=== PATIENT | male | born 1935 | race Caucasian/White ===

== ENCOUNTER → 2017-12-11 | Outpatient (CLI) | payer MEDICARE ==
[~2017-12-11] MED LIST: ACET500T68 PO; AMLO-106 PO; AMLO-99 PO; AMLO2.5T74 PO; AMOX500T10 PO; ASPI-1441 PO; AZEL6DRO OP; BENA40TA52 PO; CALC-521 PO; CALC-682 PO; CALC400T60 PO; CALC500T76 PO; CHOL10005 PO; CHOL200051 PO; CLOB15CR22 TP; CLON-327 PO; CLON-329 PO; DEN60I SUBQ; ENO100I SC; FISH1CAP15 PO; GABA-490 PO; IMIQ1CRE TP; LORA-629 PO; LORA-941 PO; META400T PO; MULT-1081 PO; MULT-1335 PO; MULTIVIT; NEPH PO; OMEP-218 PO; OXYGENHOME INH; PER PO; PRI250 PO; PRIM250T73 PO; PRIM50TA PO; PRO20 PO; PROP10TA58 PO; PROP20TA56 PO; RISE35TA PO; SILD100T59 PO; TIMO10DR28; VIT B 100; VITA-347 PO; WARF-12 PO; [UNRECOGNIZED DRUG - CODE] OD; [UNRECOGNIZED DRUG - CODE] OP; [UNRECOGNIZED DRUG - CODE] PO; [UNRECOGNIZED DRUG - CODE] PO; [UNRECOGNIZED DRUG - CODE] PO; [UNRECOGNIZED DRUG - OTHER]; [UNRECOGNIZED DRUG - REMARK]; [UNRECOGNIZED DRUG - REMARK] PO
== END ==
LOC: RESP 20:46
PROVIDERS: ATTEND Family Medicine
DX: G47.33 Obstructive sleep apnea (adult) (pediatric) (principal); G47.61 Periodic limb movement disorder; G47.36 Sleep related hypoventilation in conditions classified elsewhere

== ENCOUNTER → 2017-12-31 | Outpatient (CLI) | payer MEDICARE ==
[~2017-12-31] MED LIST changes: +DENOSUMAB 60 MG/1 ML SYR SUBQ ONE
[2017-12-31 16:00] VITALS: BP 142/76
== END ==
LOC: SPU 07:34
PROVIDERS: ATTEND Family Medicine
DX: M81.0 Age-related osteoporosis without current pathological fracture (principal)
CPT/HCPCS: 96372; J0897

== ENCOUNTER → 2018-02-17 | Outpatient (CLI) | payer MEDICARE ==
[~2018-02-17] MED LIST changes: -DENOSUMAB 60 MG/1 ML SYR SUBQ ONE
[2018-02-17 17:05] LABS: PLATELET COUNT, AUTOMATED 200 K/uL (150-450)
== END ==
LOC: LAB 16:30
PROVIDERS: ATTEND Family Medicine
DX: I10 Essential (primary) hypertension (principal)
CPT/HCPCS: 36415; 82040; 82247; 82310; 82374; 82435; 82565; 82947; 84075; 84132; 84155; 84295; 84450; 84460; 84520; 85025

== ENCOUNTER 2018-02-22 09:45 | Emergency (ER) | payer MEDICARE ==
[2018-02-22] MEDS ORDERED: NS(*) 0.9% 500 ML BAG 500 ML IV ONE (10:28)
[2018-02-22] MEDS ORDERED: MECLIZINE HCL 25 MG TAB PO ONE (10:30)
--- NOTE | 2018-02-22 10:32 | EKG ---
FACILITY: [facility] - [place] PATIENT NAME: JENNIFER RAMOS : [id number] MR: [id number] V: [id number] EXAM DATE: ORDERING PHYSICIAN: PIERO MCKEON TECHNOLOGIST: NORMA Test Reason : Blood Pressure : / mmHG Vent. Rate : 067 BPM Atrial Rate : 067 BPM P-R Int : 256 ms QRS Dur : 098 ms QT Int : 388 ms P-R-T Axes : 044 066 023 degrees QTc Int : 409 ms Sinus rhythm with 1st degree AV block Otherwise normal ECG No previous ECGs available Confirmed by Yamil Combs ([id number]) on 02/22/2018 4:52:24 PM Referred By: Confirmed By:Yamil Eugene
[2018-02-22 10:36] LABS: PLATELET COUNT, AUTOMATED 191 K/uL (150-450)
--- NOTE | 2018-02-22 11:25 | RADIOLOGY IMAGING REPORT ---
[facility] PATIENT NAME: Justyn Webb : 1935 MR: [id number] V: [id number] EXAM DATE: ORDERING PHYSICIAN: PIERO MCKEON TECHNOLOGIST: Location: [facility] Patient: Justyn Webb : 1935 Visit/Account:[id number] Date of Sevice: 02/22/2018 Exam type: CHEST PA AND LAT History: dizziness Comparison: February 08, 2011. Findings: Mild hyperexpansion of the lung lee again seen. There is no evidence of acute appearing infiltrat es, pleural effusions or pulmonary edema. Cardiac silhouette is normal in size. There are old right -sided rib fractures IMPRESSION: 1. Mild hyperexpansion of the lung lee similar to the prior study Report Dictated By: Tricia Stewart MD at 02/22/2018 11:21 AM Report E-Signed By: Tricia Stewart MD at 02/22/2018 11:23 AM WSN:[email or web address]
--- NOTE | 2018-02-22 11:27 | RADIOLOGY IMAGING REPORT ---
FACILITY: [facility] [place] PATIENT NAME: Justyn Webb : 1935 MR: [id number] V: [id number] EXAM DATE: ORDERING PHYSICIAN: PIERO MCKEON TECHNOLOGIST: Location: [facility] Patient: Justyn Webb : 1935 Visit/Account:[id number] Date of Sevice: 02/22/[address] scan without contrast HISTORY: Dizziness COMPARISONS: None TECHNIQUE: Non-contrast head CT was performed with sagittal and coronal reformations. One of the following dose optimization techniques was utilized in the performance of this exam: autom ated exposure control; adjustment of the mA and/or kV according to patient size; or use of iterative reconstruction technique. Specific details can be referenced in the facility's radiology CT exam ope rational policy. FINDINGS: There is no intracranial hemorrhage, hydrocephalus or midline shift. The basal cisterns, espinosa-white differentiation, and convexity sulci are maintained. Patchy white matter hypoattenuation. Normal or bital soft tissues. Clear mastoid air cells, minimal left maxillary sinus mucosal thickening. Bilateral frontoethmoidal recess mucosal thickening. Normal osseous structures. IMPRESSION: No acute intracranial abnormality. Moderate chronic small vessel ischemic change. Report Dictated By: Ruben Tejada MD at 02/22/2018 11:20 AM Report E-Signed By: Ruben Tejada MD at 02/22/2018 11:23 AM WSN:[id number]
[2018-02-22 11:30] VITALS: BP 148/75
--- NOTE | 2018-02-22 11:47 | ER Report ---
History and Physical Time Seen By MD: 09:55 Hx. of Stated Complaint: WOKE UP DIZZY THIS MORNING. FEELS LIKE THE RIGHT SIDE OF HIS BODY IS HEAVIER THAN THE LEFT. FEELS STRANGE ALL OVER. FELT "NORMAL" UNTILL HE HE WOKE UP THIS MORNING. HAD A RECENT BLOOD DRAW ON THUR. UNSURE WHAT THEY WERE CHECKING FOR HPI/ROS CHIEF COMPLAINT: Positional dizziness HISTORY OF PRESENT ILLNESS: Patient is an 82-year-old male who presents emergency department with complaint of positional dizziness that began this morning upon waking. He states he went to bed feeling well. He denies headache. He denies chest pain or palpitations. Denies chest pressure. States symptoms are worse with movement better with rest. States that he's had similar symptoms in the past but not quite as severe. Denies prior stroke denies prior symptoms. He denies any infectious symptoms such as fever or neck stiffness denies upper respiratory symptoms including throat pain or cough. Denies any recent changes in medications. REVIEW OF SYSTEMS: Constitutional: No fever, no chills. Eyes: No discharge. ENT: No sore throat. Cardiovascular: No chest pain, no palpitations. Respiratory: No cough, no shortness of breath. Gastrointestinal: No abdominal pain, no vomiting. Genitourinary: No hematuria. Musculoskeletal: No back pain. Skin: No rashes. Neurological: No headache. Additional dizziness Allergies: Coded Allergies: animal dander (Verified Allergy, Unknown, 02/22/18) Uncoded Allergies: HAYFEVER (Allergy, Mild, UNKNOWN, 11/25/11) Home Meds Active Scripts Meclizine Hcl (MECLIZINE HCL) 25 Mg Tablet, 25 MG PO TID for dizziness, #30 TAB 0 Refills Prov:PIERO MCKEON MD 02/22/18 Clonidine Hcl (CLONIDINE HCL) 0.2 Mg Tablet, 0.2 MG PO BID for 90 Days, #180 TAB 4 Refills Prov:WANDY CALDERÓN MD 01/11/18 Gabapentin (NEURONTIN) 300 Mg Capsule, 1 CAP PO BID for 90 Days, #180 CAPSULE 4 Refills Prov:WANDY CALDERÓN MD 08/11/17 Amlodipine Besylate (AMLODIPINE BESYLATE) 10 Mg Tablet, 1 TAB PO QDAY, #90 TAB 4 Refills Prov:WANDY CALDERÓN MD 08/10/17 Propranolol Hcl (PROPRANOLOL HCL) 20 Mg Tablet, 2 TAB PO BID for 90 Days, #360 TAB 3 Refills Prov:WANDY CALDERÓN MD 07/09/17 Primidone (PRIMIDONE) 250 Mg Tab, 1 TAB PO BID for 90 Days, #180 TAB 3 Refills Prov:WANDY CALDERÓN MD 07/09/17 Sildenafil Citrate (VIAGRA) 100 Mg Tablet, 1 TAB PO PRN, #6 TAB 6 Refills Prov:PAM ENGLE MD 04/14/17 Reported Medications Oxygen (OXYGEN) Inha, 3 L INH HS, L Hummidified with CPaP 12/20/17 Calcium Carbonate (TUMS) 300 Mg Tab.chew, 2 TAB PO HS, TAB.CHEW 07/09/17 Amoxicillin 500 Mg Tab (AMOXICILLIN 500 MG TAB) 500 Mg Tablet, 4 TAB PO PRN, TAB 07/09/17 Cholecalciferol (Vitamin D3) (D-2000) 2,000 Unit Capsule, 1 CAP PO DAILY, CAPSULE 07/09/17 Acetaminophen (TYLENOL EXTRA STRENGTH) 500 Mg Tablet, 2 TAB PO BID, TAB 01/05/17 Denosumab (PROLIA) 60 Mg/1 Ml Injs, 60 MG SUBQ Q6H 01/05/17 Vitamin B Complex (NATURAL B-100) 1 Each Tablet, 1 EACH PO HS 01/05/17 Multivitamin (MULTI-DAY VITAMINS) 1 Each Tablet, 1 EACH PO DAILY 01/05/17 Loratadine (LORATADINE) 10 Mg Tablet, 1 TAB PO DAILY 01/05/17 Hx Smoking: No Smoking Status: Never Smoker Constitutional Vital Sign - Last 24 Hours 02/22/18 02/22/18 02/22/18 02/22/18 09:45 09:51 09:55 10:00 Temp 97.4 Pulse ??? 65 ??? Resp 14 B/P (MAP) 146/82 146/82 (103) 154/88 (110) Pulse Ox 91 92 O2 Delivery Room Air 02/22/18 02/22/18 02/22/18 02/22/18 10:15 10:17 10:30 10:45 Pulse 66 59 ??? Resp 33 7 B/P (MAP) 127/75 (92) Pulse Ox 86 O2 Flow Rate 2.0 02/22/18 02/22/18 02/22/18 02/22/18 11:00 11:05 11:20 11:28 Pulse ? B/P (MAP) 148/77 (100) 149/90 (109) 02/22/18 02/22/18 02/22/18 11:30 11:35 11:50 Pulse 62 56 B/P (MAP) 148/75 (99) Pulse Ox 94 95 Physical Exam General/Constitutional: Patient is awake, alert, nontoxic and in no acute respiratory distress. Head: Normocephalic and atraumatic. Eyes: Conjunctival clear, Pupils are equal and reactive to light. Extraocular muscles are intact and symmetrical. Sclera are clear and anicteric. Ears:External canals are clear. Tympanic membranes are clear with normal landmarks and light reflex. Nares: No rhinorrhea or bleeding. Turbinates are pink and moist. Oropharyngeal: Mucous membranes are moist. There is no pharyngeal erythema or exudate. There are no palatal petechiae. Uvula is midline and symmetrical. Neck: Supple, no adenopathy. Cardiovascular: Heart is regular rate and rhythm without audible murmurs, rubs or gallops. Pulmonary: Lungs are clear to auscultation bilaterally. There are no wheezes, rales, or rhonchi. Chest rise is symmetrical Abdomen: Soft, nontender, no guarding or peritoneal signs. Extremities: No gross deformities, No peripheral cyanosis. Able to move all 4 extremities. Neuro: Alert and oriented X3, Cranial nerves 2 thru 12 are intact and symmetrical. Patient has normal gait. Skin: No rashes, skin is warm dry and well perfused. Medical Decision Making Data Points Result Diagram: 02/22/18 1009 02/22/18 1009 Laboratory Hematology Test 02/22/18 10:09 02/22/18 11:22 Red Blood Count 4.42 M/uL (4.00-5.60) Mean Corpuscular Volume 94.2 fL (80.0-96.0) Mean Corpuscular Hemoglobin 32.0 pg (26.0-33.0) Mean Corpuscular Hemoglobin Concent 33.9 g/dL (32.0-36.0) Red Cell Distribution Width 16.0 % (11.5-14.5) Mean Platelet Volume 8.5 fL (7.2-11.1) Neutrophils (%) (Auto) 51.9 % (39.4-72.5) Lymphocytes (%) (Auto) 22.4 % (17.6-49.6) Monocytes (%) (Auto) 12.4 % (4.1-12.4) Eosinophils (%) (Auto) 11.9 % (0.4-6.7) Basophils (%) (Auto) 1.4 % (0.3-1.4) Nucleated RBC Relative Count (auto) 0.1 /100WBC Neutrophils # (Auto) 2.3 K/uL (2.0-7.4) Lymphocytes # (Auto) 1.0 K/uL (1.3-3.6) Monocytes # (Auto) 0.5 K/uL (0.3-1.0) Eosinophils # (Auto) 0.5 K/uL (0.0-0.5) Basophils # (Auto) 0.1 K/uL (0.0-0.1) Nucleated RBC Absolute Count (auto) 0.01 K/uL Sodium Level 141 mmol/L (137-145) Potassium Level 4.4 mmol/L (3.5-5.0) Chloride Level 103 mmol/L (98-107) Carbon Dioxide Level 25 mmol/L (22-30) Blood Urea Nitrogen 32 mg/dl (9-21) Creatinine 1.20 mg/dl (0.66-1.25) Glomerular Filtration Rate Calc 58.3 Random Glucose 107 mg/dl (75-110) Calcium Level 10.1 mg/dl (8.4-10.2) Magnesium Level 1.5 mg/dl (1.7-2.2) Total Bilirubin 0.4 mg/dl (0.2-1.3) Aspartate Amino Transf (AST/SGOT) 28 U/L (0-35) Alanine Aminotransferase (ALT/SGPT) 24 U/L (0-56) Alkaline Phosphatase 69 U/L (0-126) Troponin I < 0.012 ng/ml Total Protein 8.1 g/dl (6.3-8.2) Albumin 4.2 g/dl (3.5-5.0) Urine Color Yellow Urine Clarity Clear Urine pH 6.0 pH (4.8-9.5) Urine Specific [place] 1.013 Urine Protein Negative mg/dL (NEGATIVE) Urine Glucose (UA) Negative mg/dL (NEGATIVE) Urine Ketones Negative mg/dL (NEGATIVE) Urine Blood Negative (NEGATIVE) Urine Nitrite Negative (NEGATIVE) Urine Bilirubin Negative (NEGATIVE) Urine Urobilinogen Negative mg/dL (0.2-1.9) Urine Leukocyte Esterase Negative (NEGATIVE) Urine RBC <1 /HPF (0-2/HPF) Urine WBC 1 /HPF (0-5/HPF) Urine Squamous Epithelial Cells None /LPF (</=FEW) Urine Bacteria Negative /HPF (NONE-FEW) Urine Hyaline Casts Few /LPF (NONE-FEW) Urine Mucus None /HPF (NONE-FEW) Chemistry Test 02/22/18 10:09 02/22/18 11:22 White Blood Count 4.3 k/uL (4.5-11.0) Red Blood Count 4.42 M/uL (4.00-5.60) Hemoglobin 14.1 g/dL (14.0-18.0) Hematocrit 41.6 % (42.0-52.0) Mean Corpuscular Volume 94.2 fL (80.0-96.0) Mean Corpuscular Hemoglobin 32.0 pg (26.0-33.0) Mean Corpuscular Hemoglobin Concent 33.9 g/dL (32.0-36.0) Red Cell Distribution Width 16.0 % (11.5-14.5) Platelet Count 191 K/uL (150-450) Mean Platelet Volume 8.5 fL (7.2-11.1) Neutrophils (%) (Auto) 51.9 % (39.4-72.5) Lymphocytes (%) (Auto) 22.4 % (17.6-49.6) Monocytes (%) (Auto) 12.4 % (4.1-12.4) Eosinophils (%) (Auto) 11.9 % (0.4-6.7) Basophils (%) (Auto) 1.4 % (0.3-1.4) Nucleated RBC Relative Count (auto) 0.1 /100WBC Neutrophils # (Auto) 2.3 K/uL (2.0-7.4) Lymphocytes # (Auto) 1.0 K/uL (1.3-3.6) Monocytes # (Auto) 0.5 K/uL (0.3-1.0) Eosinophils # (Auto) 0.5 K/uL (0.0-0.5) Basophils # (Auto) 0.1 K/uL (0.0-0.1) Nucleated RBC Absolute Count (auto) 0.01 K/uL Glomerular Filtration Rate Calc 58.3 Calcium Level 10.1 mg/dl (8.4-10.2) Magnesium Level 1.5 mg/dl (1.7-2.2) Total Bilirubin 0.4 mg/dl (0.2-1.3) Aspartate Amino Transf (AST/SGOT) 28 U/L (0-35) Alanine Aminotransferase (ALT/SGPT) 24 U/L (0-56) Alkaline Phosphatase 69 U/L (0-126) Troponin I < 0.012 ng/ml Total Protein 8.1 g/dl (6.3-8.2) Albumin 4.2 g/dl (3.5-5.0) Urine Color Yellow Urine Clarity Clear Urine pH 6.0 pH (4.8-9.5) Urine Specific [place] 1.013 Urine Protein Negative mg/dL (NEGATIVE) Urine Glucose (UA) Negative mg/dL (NEGATIVE) Urine Ketones Negative mg/dL (NEGATIVE) Urine Blood Negative (NEGATIVE) Urine Nitrite Negative (NEGATIVE) Urine Bilirubin Negative (NEGATIVE) Urine Urobilinogen Negative mg/dL (0.2-1.9) Urine Leukocyte Esterase Negative (NEGATIVE) Urine RBC <1 /HPF (0-2/HPF) Urine WBC 1 /HPF (0-5/HPF) Urine Squamous Epithelial Cells None /LPF (</=FEW) Urine Bacteria Negative /HPF (NONE-FEW) Urine Hyaline Casts Few /LPF (NONE-FEW) Urine Mucus None /HPF (NONE-FEW) Urinalysis Test 02/22/18 11:22 Urine Color Yellow Urine Clarity Clear Urine pH 6.0 pH (4.8-9.5) Urine Specific [place] 1.013 Urine Protein Negative mg/dL (NEGATIVE) Urine Glucose (UA) Negative mg/dL (NEGATIVE) Urine Ketones Negative mg/dL (NEGATIVE) Urine Blood Negative (NEGATIVE) Urine Nitrite Negative (NEGATIVE) Urine Bilirubin Negative (NEGATIVE) Urine Urobilinogen Negative mg/dL (0.2-1.9) Urine Leukocyte Esterase Negative (NEGATIVE) Urine RBC <1 /HPF (0-2/HPF) Urine WBC 1 /HPF (0-5/HPF) Urine Squamous Epithelial Cells None /LPF (</=FEW) Urine Bacteria Negative /HPF (NONE-FEW) Urine Hyaline Casts Few /LPF (NONE-FEW) Urine Mucus None /HPF (NONE-FEW) EKG/Imaging EKG Interpretation EKG shows sinus rhythm with first-degree AV block and ventricular rate is 67 bpm no other abnormalities noted on sharemilker Interpretation: Normal Sinus Rhythm (with first-degree AV block) Imaging FACILITY: [facility] [place] PATIENT NAME: Justyn Webb : 1935 MR: [id number] V: [id number] EXAM DATE: ORDERING PHYSICIAN: PIERO MCKEON TECHNOLOGIST: Location: [facility] Patient: Justyn Webb : 1935 Visit/Account:[id number] Date of Sevice: 02/22/[address] scan without contrast HISTORY: Dizziness COMPARISONS: None TECHNIQUE: Non-contrast head CT was performed with sagittal and coronal reformations. One of the following dose optimization techniques was utilized in the performance of this exam: automated exposure control; adjustment of the mA and/or kV according to patient size; or use of iterative reconstruction technique. Specific details can be referenced in the facility's radiology CT exam operational policy. FINDINGS: There is no intracranial hemorrhage, hydrocephalus or midline shift. The basal cisterns, espinosa-white differentiation, and convexity sulci are maintained. Patchy white matter hypoattenuation. Normal orbital soft tissues. Clear mastoid air cells, minimal left maxillary sinus mucosal thickening. Bilateral frontoethmoidal recess mucosal thickening. Normal osseous structures. IMPRESSION: No acute intracranial abnormality. Moderate chronic small vessel ischemic change. Report Dictated By: Ruben Tejada MD at 02/22/2018 11:20 AM Report E-Signed By: Ruben Tejada MD at 02/22/2018 11:23 AM WSN:[id number] FACILITY: [facility] [place] PATIENT NAME: Justyn Webb : 1935 MR: [id number] V: [id number] EXAM DATE: ORDERING PHYSICIAN: PIERO MCKEON TECHNOLOGIST: Location: [facility] Patient: Justyn Webb : 1935 Visit/Account:[id number] Date of : 02/22/2018 Exam type: CHEST PA AND LAT History: dizziness Comparison: February 08, 2011. Findings: Mild hyperexpansion of the lung lee again seen. There is no evidence of acute appearing infiltrates, pleural effusions or pulmonary edema. Cardiac silhouette is normal in size. There are old right-sided rib fractures IMPRESSION: 1. Mild hyperexpansion of the lung lee similar to the prior study Report Dictated By: Tricia Stewart MD at 02/22/2018 11:21 AM Report E-Signed By: Tricia Stewart MD at 02/22/2018 11:23 AM WSN:[email or web address] ED Course/Re-evaluation ED Course 02/22/2018 11:47:29 am workup at this time is unremarkable. Suspect patient with positional vertigo I will discharge home and have him follow-up with his primary care provider, will also send on a prescription for meclizine Re-evaluation 02/22/2018 11:50:25 am patient feels improved after oral dose of meclizine. Decision to Disposition Date: Feb 22, 2018 Decision to Disposition Time: 11:50 Depart Departure Latest Vital Signs Vital Signs Date Time Temp Pulse Resp B/P (MAP) Pulse Ox O2 Delivery O2 Flow Rate FiO2 02/22/18 11:50 56 95 02/22/18 11:30 148/75 (99) 02/22/18 10:30 7 02/22/18 10:17 2.0 02/22/18 09:51 97.4 Room Air Impression: Primary Impression: Positional vertigo Condition: Improved Disposition: HOME OR SELF-CARE Referrals: WANDY CALDERÓN MD (PCP) 2 Days Call in 2 days if your symptoms persist, return to the emergency department immediately if your symptoms worsen New Scripts Meclizine Hcl (MECLIZINE HCL) 25 Mg Tablet 25 MG PO TID for dizziness, #30 TAB 0 Refills Prov: PIERO MCKEON MD 02/22/18 Patient Instructions: Benign Paroxysmal Positional Vertigo (ED) PIERO MCKEON MD Feb 22, 2018 11:47
[2018-02-22] MEDS ORDERED: MECL25TA9 PO (11:51)
[2018-02-24] MEDS ORDERED: MECL25TA9 PO (08:17)
[2018-02-24] MEDS ORDERED: LISI2.5T60 PO (08:17)
[2018-02-24] MEDS ORDERED: LATODPT OU (08:31)
[2018-02-24] MEDS ORDERED: CYA1000 PO (08:31)
== END 2018-02-22 11:55 | disposition home or self-care (01) ==
LOC: ER 09:51
DX: H81.10 Benign paroxysmal vertigo, unspecified ear (principal)
CPT/HCPCS: 70450; 71046; 81001; 83735; 84484; 85025; 93005; 96360; 99284; J7040; J8597; 82040; 82247; 82310; 82374; 82435; 82565; 82947; 84075; 84132; 84155; 84295; 84450; 84460; 84520

== ENCOUNTER → 2018-03-17 | Outpatient (CLI) | payer MEDICARE ==
[~2018-03-17] MED LIST changes: +AMLO-113 PO; -AMLO-99 PO; -AMLO2.5T74 PO; +AMLO2.5T76 PO; +CYA1000 PO; +LATODPT OU; +LISI2.5T60 PO; +MECL25TA9 PO
== END ==
LOC: LAB 15:28
PROVIDERS: ATTEND Family Medicine
DX: I10 Essential (primary) hypertension (principal)
CPT/HCPCS: 36415; 82310; 82374; 82435; 82565; 82947; 84132; 84295; 84520

== ENCOUNTER → 2018-04-21 | Outpatient (CLI) | payer MEDICARE ==
[~2018-04-21] MED LIST changes: +HYDR12.561 PO
== END ==
LOC: LAB 16:30
PROVIDERS: ATTEND Family Medicine
DX: I10 Essential (primary) hypertension (principal)
CPT/HCPCS: 36415; 82310; 82374; 82435; 82565; 82947; 84132; 84295; 84520

== ENCOUNTER → 2018-05-06 | Outpatient (CLI) | payer MEDICARE | LOC: LAB 15:46 | PROVIDERS: ATTEND Family Medicine | DX: I10 Essential (primary) hypertension (principal) | CPT/HCPCS: 36415; 82310; 82374; 82435; 82565; 82947; 84132; 84295; 84520 ==

== ENCOUNTER → 2018-05-19 | Outpatient (CLI) | payer MEDICARE ==
[~2018-05-19] MED LIST changes: +IOPAMIDOL 76% 75 ML INFUS BTL 75 ML ONE
--- NOTE | 2018-05-19 09:40 | RADIOLOGY IMAGING REPORT ---
FACILITY: [facility] PATIENT NAME: Justyn Webb : 1935 MR: [id number] V: [id number] EXAM DATE: ORDERING PHYSICIAN: BENNIE THOMAS TECHNOLOGIST: Location: [facility] Patient: Justyn Webb : 1935 Visit/Account:[id number] Date of Sevice: 05/19/2018 CHEST/AB/PELV W/CONTRAST HISTORY: Malignant melanoma of scalp ADDITIONAL HISTORY: None. TECHNIQUE: Following administration of IV contrast axial images acquired through the chest abdomen a nd pelvis during the portal venous phase. Coronal and sagittal reformatting was also performed.Dose Lowering Technique One of the following dose optimization techniques was utilized in the performance of this exam: Autom ated exposure control; adjustment of the mA and/or kV according to the patient's size; or use of an i terative reconstruction technique. Specific details can be referenced in the facility's radiology C T exam operational policy. CONTRAST: 75 mL Isovue-370 COMPARISON: CTA chest May 06, 2009 FINDINGS: CHEST: Lungs/Pleura: There is biapical pleural thickening appearing similar to the prior study. There is a tiny 2 mm intrafissural nodule in the major fissure on the right best seen on image 182 of series 3 and has remained stable. This is of doubtful significance. There is mild scarring in the right lower lobe and inferior right middle lobe Mediastinum/lymph nodes: Negative. Heart/vessels: Negative. Bones/soft tissues: There is scoliosis and spondylotic changes of the thoracic spine.. No aggressiv e appearing bone lesions are seen ABDOMEN AND PELVIS: Hepatobiliary: Negative. Spleen: Accessory splenule Pancreas: Negative. Adrenals: There is an 8 mm hypoattenuating nodule right adrenal gland that has remained stable since 2008 likely small adenoma mild nodular thickening of the left adrenal gland also noted that appears stable Kidneys ureters and bladder : There is a 1.9 cm posterior upper pole right renal cyst and a 1.2 cm lo wer pole anterior left renal cyst. Other tiny hypodensities are too small to characterize. There is moderate perinephric stranding bilaterally Genitalia: Negative. GI: There is diverticulosis left-sided colon although no CT evidence of acute diverticulitis Vessels/spaces/nodes: Small calcified portacaval lymph nodes are present which were present on the p rior study Bones/soft tissues: There are artifacts from a right hip arthroplasty. There are extensive spondylo tic changes of the lumbar spine. No aggressive appearing bone lesions are seen Additional findings: None pertinent. IMPRESSION: No evidence of metastatic disease in the chest abdomen or pelvis Additional chronic findings as described above Report Dictated By: Tricia Stewart MD at 05/19/2018 8:39 AM Report E-Signed By: Tricia Stewart MD at 05/19/2018 9:35 AM WSN:[email or web address]
--- NOTE | 2018-05-19 14:55 | RADIOLOGY IMAGING REPORT ---
FACILITY: [facility] [place] PATIENT NAME: Justyn Webb : 1935 MR: [id number] V: [id number] EXAM DATE: ORDERING PHYSICIAN: BENNIE THOMAS TECHNOLOGIST: Location: [facility] [place] Patient: Justyn Webb : 1935 Visit/Account:[id number] Date of Sevice: 05/19/2018 EXAMINATION: CT neck with IV contrast HISTORY: Malignant melanoma of scalp. COMPARISON: CT head from 02/22/2018. TECHNIQUE: Spiral scan was obtained from the hard palate through the upper chest during injection o f nonionic iodinated intravenous contrast. Sagittal and coronal reformatted images are also submitte d. CONTRAST: 75 mL of IV Isovue-370. One of the following dose optimization techniques was utilized in the performance of this exam: Autom ated exposure control; adjustment of the mA and/or kV according to the patient's size; or use of an i terative reconstruction technique. Specific details can be referenced in the facility's radiology C T exam operational policy. FINDINGS: Masses/lesions: None. Airway: Normal. Vessels: Mild atherosclerotic calcifications of the great vessels and carotid bulbs. Vascular struc tures are patent. Musculoskeletal/body wall: Moderate to severe degenerative changes of the cervical spine, with grade 1 degenerative anterolisthesis at C3-4 and C7-T1. Lymph nodes: There are scattered shotty lymph nodes in the neck bilaterally, without enlarged or abno rmal morphology lymph nodes. Visualized orbits/brain/paranasal sinuses: Visualized intracranial contents are normal. Mild mucosal thickening in the paranasal sinuses. Upper chest: Negative. IMPRESSION: 1. No evidence of metastatic disease to the neck. 2. Moderate to severe degenerative changes of the cervical spine. Report Dictated By: Sofy Hairston MD at 05/19/2018 2:45 PM Report E-Signed By: Sofy Hairston MD at 05/19/2018 2:51 PM WSN:[id number]
== END ==
LOC: CT 00:36
PROVIDERS: ATTEND Internal Medicine Medical Oncology
DX: N28.1 Cyst of kidney, acquired (principal); K57.30 Diverticulosis of large intestine without perforation or abscess without bleeding
CPT/HCPCS: 70491; 71260; 74177; Q9967

== ENCOUNTER → 2018-05-24 | Outpatient (CLI) | payer MEDICARE ==
[~2018-05-24] MED LIST changes: -IOPAMIDOL 76% 75 ML INFUS BTL 75 ML ONE
--- NOTE | 2018-05-24 17:08 | RADIOLOGY IMAGING REPORT ---
FACILITY: [facility] [place] PATIENT NAME: Justyn Webb : 1935 MR: [id number] V: [id number] EXAM DATE: ORDERING PHYSICIAN: BENNIE THOMAS TECHNOLOGIST: Location: [facility] Patient: Justyn Webb : 1935 Visit/Account:[id number] Date of Sevice: 05/24/2018 BRAIN W W/O CONTRAST ADDITIONAL PERTINENT HISTORY: Malignant melanoma COMPARISON STUDIES: Head CT February 22, 2018 TECHNIQUE: Multi-planar, multi-sequence brain MRI was performed with and without IV contrast adminis tration. Contrast: 15 mL MultiHance FINDINGS: Ventricles / sulci / fissures: Negative. Masses / hemorrhage / midline shift: Negative. White matter: Patchy areas of increased FLAIR and T2 signal intensity in the periventricular white m atter and subcortical white matter without evidence of contrast enhancement, mass effect or restricte d diffusion is nonspecific in nature. This is most likely related to chronic microvascular ischemic change. Chung-white differentiation: Normal. Extra-axial fluid collections: Negative. Intracranial vasculature and dural sinuses: Negative. Skull base / calvarium: Negative. Visualized mastoid air cells / paranasal sinuses: There is mild mucosal thickening in the maxillary s inuses Orbits: Negative. Upper neck:Negative. Incidentally noted is a partially empty sella IMPRESSION: Probable chronic microischemic changes in the periventricular and subcortical white matter No MR evidence of intracranial metastases at this time Incidental note of a partially empty sella Report Dictated By: Tricia Stewart MD at 05/24/2018 4:58 PM Report E-Signed By: Tricia Stewart MD at 05/24/2018 5:04 PM WSN:[email or web address]
== END ==
LOC: MRI 02:02
PROVIDERS: ATTEND Internal Medicine Medical Oncology
DX: R90.82 White matter disease, unspecified (principal)
CPT/HCPCS: 70553; A9577

== ENCOUNTER → 2018-06-27 | Outpatient (CLI) | payer MEDICARE ==
--- NOTE | 2018-06-27 15:58 | RADIOLOGY IMAGING REPORT ---
FACILITY: [facility] [place] PATIENT NAME: Justyn Webb : 1935 MR: [id number] V: [id number] EXAM DATE: ORDERING PHYSICIAN: WNADY CALDERÓN TECHNOLOGIST: Location: [facility] Patient: Justyn Webb : 1935 Visit/Account:[id number] Date of Sevice: 06/27/2018 DEXA Scan Clinical history: Screening. Comparison: Comparison scan 03/09/2016. LUMBAR SPINE: The bone mineral density (BMD) measured from L1-L4 correlates with a Z-score of 3.3 and a T-score of 3.3 which is within normal range as defined by the World Health Organization. There is endplate sclerotic changes in the inferior lumbar spine which may artificially increase the Z score but even allowing for this the T score is in L1 and L2 are within normal range. The correspo nding risk of fracture in the lumbar spine is not increased compared with a young adult reference pop ulation. This value has increased by 9.3 % since the prior study. More than 5% change is considered significant. HIP: Bone mineral density (BMD) measured in the Left Total Hip region correlates with a Z-score of -0.8 an d a T-score of is 1.5. The T-score of the femoral neck is -2.0. The lower of the two T-scores is osteopenic as defined by the World Health Organization. The corresponding risk of fracture in the hip is moderately increased compared with a young adult r eference population. This value has increased by 0.7 % since the prior study. More than 5% change i s considered significant. Bone mineral density (BMD) measured in the Left Femoral Neck region measures 0.890 g/cm?. IMPRESSION: 1. Lumbar spine: Within normal range. There has been significant increase in the bone mineral dens ity since the previous exam. This may be in part artifactual due to reactive endplate sclerosis in t he lower lumbar spine. 2. Left Total Hip: Osteopenic. There has been no significant change in the bone mineral density sin ce the previous exam. The next DEXA scan of this patient should include the following sites: L1-L4 and Left hip. FRAX? WHO Fracture Risk Assessment Tool link: <http://www.shef.ac.uk/FRAX/tool.jsp?locationValue=9> PLEASE NOTE: 1) The World Health Organization defines low BMD as follows: T-score Normal > -1 Osteopenia < -1 and > -2.5 Osteoporosis < -2.5 without fractures Established osteoporosis < -2.5 with fractures 2) In general, you may wish to consider: Diagnosis Treatment Follow-up DEXA Normal BMD Prevention 2-3 years Osteopenia Prevention/therapy 1-2 years Osteoporosis Therapy Yearly 3) Fracture risk estimated from the T-score is more accurate for vertebral fractures (often spontane ous) than for hip fractures. Report Dictated By: Isreal Desai MD at 06/27/2018 3:50 PM Report E-Signed By: Isreal Desai MD at 06/27/2018 3:54 PM FAWNN:ASHLEY
== END ==
LOC: RAD 13:21
PROVIDERS: ATTEND Family Medicine
DX: M85.80 Other specified disorders of bone density and structure, unspecified site (principal)
CPT/HCPCS: 77080

== ENCOUNTER 2018-08-10 10:44 | Outpatient (RCR) | payer MEDICARE ==
[~2018-08-10 10:44] MED LIST changes: -AMLO-113 PO; +AMLO-127 PO; -AMLO2.5T76 PO; +AMLO2.5T78 PO
[2018-08-22] MEDS ORDERED: PROP20TA56 PO (17:12)
== END 2018-08-25 ==
LOC: LAB 10:44
PROVIDERS: ATTEND Orthopaedic Surgery
DX: M25.562 Pain in left knee (principal); M89.2 Other disorders of bone development and growth
CPT/HCPCS: 36415; 82565

== ENCOUNTER → 2018-08-16 | Outpatient (CLI) | payer MEDICARE | LOC: AUD 09:00 | PROVIDERS: ATTEND Family Medicine | DX: H90.3 Sensorineural hearing loss, bilateral (principal) | CPT/HCPCS: 92552 ==

== ENCOUNTER → 2018-09-12 | Outpatient (CLI) | payer MEDICARE | LOC: LAB 15:01 | PROVIDERS: ATTEND Family Medicine | DX: R79.89 Other specified abnormal findings of blood chemistry (principal); I10 Essential (primary) hypertension | CPT/HCPCS: 82310; 82374; 82435; 82565; 82947; 84132; 84295; 84520 ==

== ENCOUNTER → 2018-12-26 | Outpatient (CLI) | payer MEDICARE ==
[~2018-12-26] MED LIST changes: +IBAN150T16 PO
== END ==
LOC: LAB 16:01
PROVIDERS: ATTEND Family Medicine
DX: M81.0 Age-related osteoporosis without current pathological fracture (principal); I10 Essential (primary) hypertension; R20.0 Anesthesia of skin
CPT/HCPCS: 36415; 82306; 82310; 82374; 82435; 82565; 82607; 82947; 84132; 84295; 84443; 84520

== ENCOUNTER 2019-01-20 13:23 | Outpatient (RCR) | payer MEDICARE ==
[~2019-01-20 13:23] MED LIST changes: +PEMB100V
== END 2019-01-23 16:54 | disposition home or self-care (01) ==
LOC: ONC 13:23
PROVIDERS: ATTEND Internal Medicine
DX: Z02.9 Encounter for administrative examinations, unspecified (principal)

== ENCOUNTER → 2019-01-23 | Outpatient (CLI) | payer MEDICARE ==
[~2019-01-23] MED LIST changes: +IOPAMIDOL 76% 100 ML INFUS BTL 100 ML ONE
--- NOTE | 2019-01-23 14:15 | RADIOLOGY IMAGING REPORT ---
FACILITY: [facility] PATIENT NAME: Justyn Webb : 1935 MR: [id number] V: [id number] EXAM DATE: ORDERING PHYSICIAN: BENNIE THOMAS TECHNOLOGIST: Location: [facility] [place] Patient: Justyn Webb : 1935 Visit/Account:[id number] Date of Sevice: 01/23/2019 CT CHEST ABDOMEN PELVIS W/CON HISTORY: Melanoma ADDITIONAL HISTORY: None. TECHNIQUE: Following administration of IV contrast axial images acquired through the chest abdomen a nd pelvis during the portal venous phase. Coronal and sagittal reformatting was also performed.Dose Lowering Technique One of the following dose optimization techniques was utilized in the performance of this exam: Autom ated exposure control; adjustment of the mA and/or kV according to the patient's size; or use of an i terative reconstruction technique. Specific details can be referenced in the facility's radiology C T exam operational policy. CONTRAST: 75 mL Isovue-370 COMPARISON: May 19, 2018 FINDINGS: CHEST: Lungs/Pleura: There is biapical pleural thickening similar to the prior study 2 mm intrafissural nodule in the major fissure on the right has remained stable and is of doubtful si gnificance. Scarring in the right lower lobe and inferior right middle lobe has remained stable Mediastinum/lymph nodes: Negative. Heart/vessels: Negative. Bones/soft tissues: Scoliosis and spondylotic changes of the thoracic spine. ABDOMEN AND PELVIS: Hepatobiliary: Negative. Spleen: Negative. Pancreas: Negative. Adrenals: Negative. Kidneys ureters and bladder : Moderate perinephric stranding is again noted bilaterally 1.9 cm upper pole right renal cyst appears unchanged. Period 1.2 cm anterior lower pole left renal cyst appears s maller now measuring 6 mm. There are additional subcentimeter hypodensities in the left kidney that are too small to characterize Genitalia: Negative. GI: Diverticulosis of the left-sided the colon although no CT evidence of acute diverticulitis Vessels/spaces/nodes: Small calcified portacaval lymph nodes have remained stable Bones/soft tissues: There is a small umbilical hernia containing fat. There are numerous artifacts from a right hip arthroplasty. Extensive spondylotic changes of the lumbar spine again noted Additional findings: None pertinent. IMPRESSION: No CT evidence of metastatic disease within the chest abdomen or pelvis Additional chronic findings as described Report Dictated By: Tricia Stewart MD at 01/23/2019 1:36 PM Report E-Signed By: Tricia Stewart MD at 01/23/2019 2:07 PM FAWNN:[email or web address]
== END ==
LOC: CT 07:08
PROVIDERS: ATTEND Internal Medicine Medical Oncology
DX: K42.9 Umbilical hernia without obstruction or gangrene (principal); K57.30 Diverticulosis of large intestine without perforation or abscess without bleeding; M41.84 Other forms of scoliosis, thoracic region; M47.894 Other spondylosis, thoracic region; R91.8 Other nonspecific abnormal finding of lung field
CPT/HCPCS: 71260; 74177; Q9967

== ENCOUNTER → 2019-01-23 | Outpatient (CLI) | payer MEDICARE ==
[~2019-01-23] MED LIST changes: -IOPAMIDOL 76% 100 ML INFUS BTL 100 ML ONE
[2019-01-23 17:27] LABS: PLATELET COUNT, AUTOMATED 226 K/uL (150-450)
== END ==
LOC: LAB 17:09
PROVIDERS: ATTEND Family Medicine
DX: I10 Essential (primary) hypertension (principal); R53.83 Other fatigue; E55.9 Vitamin D deficiency, unspecified; E53.8 Deficiency of other specified B group vitamins
CPT/HCPCS: 36415; 82040; 82247; 82310; 82374; 82435; 82565; 82947; 84075; 84132; 84155; 84295; 84450; 84460; 84520; 85025

== ENCOUNTER → 2019-01-24 | Outpatient (CLI) | payer MEDICARE, OTHER ==
[~2019-01-24] MED LIST changes: +GADOBENATE 529MG/1ML 15ML VIAL IVP ONE
--- NOTE | 2019-01-24 09:11 | RADIOLOGY IMAGING REPORT ---
FACILITY: [facility] [place] PATIENT NAME: Justyn Webb : 1935 MR: [id number] V: [id number] EXAM DATE: ORDERING PHYSICIAN: BENNIE THOMAS TECHNOLOGIST: Location: [facility] Patient: Justyn Webb : 1935 Visit/Account:[id number] Date of Sevice: 01/24/2019 MR BRAIN/BRAIN STEM W/ & W/O CON Comparisons: Brain MRI with and without contrast dated May 24, 2018 Additional pertinent history: History of melanoma TECHNIQUE: Multiplanar, multisequence brain MRI was performed with and without gadolinium contrast. CONTRAST: 15 ml of MultiHance. FINDINGS: Sagittal midline structures and craniocervical junction: Negative. Midline shift: None. Ventricles: Negative. Brain parenchyma: Diffusion weighted imaging: Negative. Gradient sequence: Negative. T2 weighted FLAIR images: Patchy regions of abnormal increased T2 signal within the periventricular and subcortical white matter of both cerebral hemispheres, nonspecific but likely representing small vessel ischemic change on a chronic basis. No significant change since previous exam. No new regions of increased T2 signal. Extra-axial spaces: Moderate cerebral atrophy. Dural venous sinuses and major arterial flow voids: Negative. Intracranial enhancement: Negative.. Mastoid air cells and paranasal sinuses: Moderate mucosal thickening involving both maxillary sinuses as well as the frontal sinuses and ethmoid air cells. Surrounding soft tissues and orbits: Negative. Impression: 1. Age related changes as described above. 2. No evidence of acute intracranial pathology. Report Dictated By: Aaron Stephen MD at 01/24/2019 9:00 AM Report E-Signed By: Aaron Stephen MD at 01/24/2019 9:03 AM [id number]
== END ==
LOC: MRI 00:45
PROVIDERS: ATTEND Internal Medicine Medical Oncology
DX: C43.9 Malignant melanoma of skin, unspecified (principal)
CPT/HCPCS: 70553; A9577

== ENCOUNTER 2019-01-27 11:53 | Outpatient (RCR) | payer MEDICARE ==
[~2019-01-27 11:53] MED LIST changes: -GADOBENATE 529MG/1ML 15ML VIAL IVP ONE
== END 2019-01-30 16:24 | disposition home or self-care (01) ==
LOC: ONC 11:53
PROVIDERS: ATTEND Internal Medicine
DX: Z02.9 Encounter for administrative examinations, unspecified (principal)